=== PATIENT | female | born 1985 | race African-American/Black ===

== ENCOUNTER 2016-11-17 19:58 | Emergency (ER) | payer OTHER ==
[~2016-11-17 19:58] MED LIST: Iopamidol 370 76% 100 ML VIAL ONE
[2016-11-17] MEDS ORDERED: Ondansetron HCl/PF 4 MG/2 ML Vial ONE (20:28)
[2016-11-17 20:47] LABS: #Basophils 0.1 thou/uL (0.0-0.2); #Eosinphils 0.2 thou/uL (0.0-0.7); #Lymphocytes 4.2 thou/uL (1.20-3.40); #Monocytes 0.5 thou/uL (0.11-0.59); #Neutrophils 6.4 thou/uL (1.40-6.50); %Basophils 0.7 % (0.0-1.0); %Eosinophils 1.6 % (0.0-10.0); %Monocytes 4.4 % (0.0-10.0); %Neutrophils 56.3 % (42.0-75.0); Anisocytosis MODERATE=16-30 cells (100X) (0-5/hpf); Hemoglobin 11.9 g/dL (12.0-16.0); MDiff Complete? YES; Mean Corpuscular HGB CONC 31.5 g/dL (32.0-36.0); Mean Corpuscular Volume 72.9 fl (81.0-99.0); Mean Platelet Volume 8.7 fL (7.4-10.4); Ovalocytes MODERATE= 6-15 cells (100X) (0-1/hpf); PLT Morphology Comment Appears Adequate; Platelet Count 205 thou/uL (130-400); RBC Distribution Width 12.6 % (11.5-14.5); Red Blood Cell (RBC) Count 5.19 mill/uL (4.20-5.40); Target Cells SLIGHT = 2-5 cells (100X) (0-1/hpf); White Blood Cell (WBC) Count 11.4 thou/uL (4.8-10.8)
[2016-11-17 20:57] LABS: Anion Gap 14 mmol/L (10-20); BUN (Urea Nitrogen) 12 mg/dL (7.0-18.7); Calc. Creatinine Clearance 0 mL/min (70-130); Calcium 9.3 mg/dL (7.8-10.44); Carbon Dioxide 21 mmol/L (22-29); Chloride 109 mmol/L (98-107); Estimated GFR-MDRD 82; Glucose 87 mg/dL (70-105); Sodium 140 mmol/L (136-145)
[2016-11-17 21:06] LABS: Bilirubin Negative (Negative); Blood, Urine Trace (Negative); Clarity Clear (Clear); Glucose, Urine (Dipstick) Negative (Negative); Leukocyte Negative (Negative); Nitrite Negative (Negative); Protein, Urine (Dipstick) Negative (Neg-Trace); Specific Gravity, Urine 1.025 (1.002-1.036); Urobilinogen 0.2 mg/dL (0.2-1.0); pH, Urine 5.5 (5.0-9.0)
[2016-11-17 21:07] LABS: Bacteria/HPF None Seen HPF (None Seen); Squamous Epithelial 0-3 HPF (0-3); WBC/HPF None Seen HPF (0-3)
[2016-11-17 21:09] LABS: Pregnancy Test - Urine (BHCG) Negative (NEGATIVE); Pregu Control Background? CLEAR/WHITE (CLR/WHITE); Pregu Control Bar Appear? YES (CONTROL BAR); Specific Gravity 1.025 (1.002-1.036)
[2016-11-17 21:09] LABS: Wet Prep Clue Cells Clue Cells Absent (None Seen); Wet Prep Pathologist Review Spermatozoa Absent (None Seen); Wet Prep Spermatozoa 2nd Revie Agree with result (None Seen); Wet Prep Trichomonas Trichomonas Absent (None Seen)
[2016-11-17] MEDS ORDERED: Ketorolac Tromethamine 30 MG/ML VIAL ONE (21:23)
--- NOTE | 2016-11-17 22:28 | CT ---
CT OF THE ABDOMEN AND PELVIS WITH IV CONTRAST: Date: 11-17-16 Provided Clinical History: Left sided abdominal pain, painful urination. FINDINGS: Comparison 10-06-14. Visualized lung bases are free of significant opacity. The solid abdominal organs demonstrate no evidence for an acute abnormality. Evaluation of the bowel and peritoneal contents is limited as oral contrast is not administered. There is no evidence for b owel obstruction. No definite focal inflammatory fat stranding, free fluid, or free air apparent. Th e appendix is not distinctly identified. The osseous structures demonstrate no concerning lytic or blastic lesions. IMPRESSION: No evidence for an acute process with limitations as above. POS: [facility]
[2016-11-17] MEDS ORDERED: cefTRIAXone\\ROCEPHIN 250 MG VIAL ONE (22:30)
[2016-11-17] MEDS ORDERED: Lidocaine 1% 20 ML MDV ONE (22:30)
[2016-11-19 23:00] LABS: Chlamydia by PCR Not Detected (NotDetected); GC by PCR Not Detected (NotDetected)
== END 2016-11-17 23:20 | disposition home or self-care (01) ==
LOC: NAV ERS 19:58
DX: R10.2 Pelvic and perineal pain (principal); F17.210 Nicotine dependence, cigarettes, uncomplicated; F41.9 Anxiety disorder, unspecified; E28.2 Polycystic ovarian syndrome; Z79.899 Other long term (current) drug therapy
CPT/HCPCS: 36415; 74177; 80048; 81003; 81015; 81025; 85025; 87210; 87480; 87491; 87510; 87591; 87660; 93005; 96372; 96374; 96375; J0696; J1885; J2001; J2270; J2405

== ENCOUNTER 2016-11-26 23:55 | Emergency (ER) | payer OTHER ==
[2016-11-27] MEDS ORDERED: Lorazepam 2 MG/ML VIAL ONE (00:13)
== END 2016-11-27 00:35 | disposition home or self-care (01) ==
LOC: NAV ERS 23:55
DX: F41.9 Anxiety disorder, unspecified (principal); E28.2 Polycystic ovarian syndrome; F17.210 Nicotine dependence, cigarettes, uncomplicated; Z79.899 Other long term (current) drug therapy
CPT/HCPCS: 96372; J2060

== ENCOUNTER 2016-12-05 04:36 | Emergency (ER) | payer OTHER ==
[2016-12-05] MEDS ORDERED: Ondansetron ODT 4 MG TAB ONE (04:56)
[2016-12-05 05:02] LABS: Bilirubin Negative (Negative); Blood, Urine Trace (Negative); Clarity Clear (Clear); Glucose, Urine (Dipstick) Negative (Negative); Leukocyte Negative (Negative); Nitrite Negative (Negative); Protein, Urine (Dipstick) Negative (Neg-Trace); Specific Gravity, Urine 1.025 (1.005-1.030); pH, Urine 5.5 (5.0-9.0)
[2016-12-05 05:03] LABS: Bacteria/HPF Rare-Few HPF (None Seen); RBC/HPF 0-3 HPF (0-3); Squamous Epithelial 0-3 HPF (0-3); WBC/HPF 0-3 HPF (0-3)
[2016-12-05 05:04] LABS: Pregnancy Test - Urine (BHCG) Negative (NEGATIVE); Pregu Control Background? CLEAR/WHITE (CLR/WHITE); Pregu Control Bar Appear? YES (CONTROL BAR); Specific Gravity 1.025 (1.002-1.036)
[2016-12-05] MEDS ORDERED: Pantoprazole 40 MG VIAL ONE (05:16)
== END 2016-12-05 05:22 | disposition home or self-care (01) ==
LOC: NAV ERS 04:36
DX: R11.2 Nausea with vomiting, unspecified (principal); R10.13 Epigastric pain; F41.9 Anxiety disorder, unspecified; F17.210 Nicotine dependence, cigarettes, uncomplicated
CPT/HCPCS: 81003; 81015; 81025; 99284; C9113; Q0162

== ENCOUNTER 2017-02-21 09:36 | Emergency (ER) | payer OTHER | END 2017-02-21 10:17 | disposition home or self-care (01) | LOC: NAV ERS 09:36 | DX: F41.9 Anxiety disorder, unspecified (principal); G24.5 Blepharospasm; E28.2 Polycystic ovarian syndrome; D57.1 Sickle-cell disease without crisis; F17.210 Nicotine dependence, cigarettes, uncomplicated; Z79.899 Other long term (current) drug therapy | CPT/HCPCS: 93005 ==

== ENCOUNTER 2017-03-10 10:59 | Emergency (ER) | payer OTHER ==
[2017-03-10 11:26] LABS: Bilirubin Negative (Negative); Blood, Urine Trace (Negative); Clarity Clear (Clear); Glucose, Urine (Dipstick) Negative (Negative); Leukocyte Trace (Negative); Nitrite Negative (Negative); Protein, Urine (Dipstick) Negative (Neg-Trace); Urobilinogen 0.2 mg/dL (0.2-1.0)
[2017-03-10 11:36] LABS: Bacteria/HPF Rare-Few HPF (None Seen); WBC/HPF 0-3 HPF (0-3)
[2017-03-10] MEDS ORDERED: Morphine 2 MG/ML SYRINGE ONE (12:17)
[2017-03-10] MEDS ORDERED: Ondansetron HCl/PF 4 MG/2 ML Vial ONE (12:17)
[2017-03-10 12:24] LABS: #Basophils 0.1 thou/uL (0.0-0.2); #Eosinphils 0.2 thou/uL (0.0-0.7); #Lymphocytes 3.4 thou/uL (1.20-3.40); #Monocytes 0.4 thou/uL (0.11-0.59); #Neutrophils 5.9 thou/uL (1.40-6.50); %Basophils 0.9 % (0.0-1.0); %Eosinophils 1.9 % (0.0-10.0); %Lymphocytes 34.1 % (21.0-51.0); %Monocytes 4.1 % (0.0-10.0); Hemoglobin 12.5 g/dL (12.0-16.0); Mean Corpuscular HGB CONC 29.4 g/dL (32.0-36.0); Mean Corpuscular Hemoglobin 22.8 pg (27.0-31.0); Mean Corpuscular Volume 77.6 fl (81.0-99.0); Mean Platelet Volume 9.3 fL (7.4-10.4); Platelet Count 226 thou/uL (130-400); RBC Distribution Width 12.2 % (11.5-14.5); Red Blood Cell (RBC) Count 5.51 mill/uL (4.20-5.40); White Blood Cell (WBC) Count 9.9 thou/uL (4.8-10.8)
[2017-03-10 12:29] LABS: Hypochromia SLIGHT = 6-15 cells (100X) (0-5/hpf); MDiff Complete? YES; PLT Morphology Comment Appears Adequate; Tear Drops SLIGHT = 2-5 cells (100X) (0-1/hpf)
[2017-03-10 12:34] LABS: ALT (SGPT) Less than 6 U/L (8-55); AST (SGOT) 13 U/L (5-34); Alkaline Phosphatase 65 U/L (40-150); Anion Gap 13 mmol/L (10-20); BUN (Urea Nitrogen) 8 mg/dL (7.0-18.7); Bilirubin, Total 0.3 mg/dL (0.2-1.2); Calc. Creatinine Clearance 0 mL/min (70-130); Calcium 9.1 mg/dL (7.8-10.44); Carbon Dioxide 22 mmol/L (22-29); Chloride 109 mmol/L (98-107); Estimated GFR-MDRD Greater than 90; Globulin 2.9 g/dL (2.4-3.5); Glucose 85 mg/dL (70-105); Potassium 4.5 mmol/L (3.5-5.1); Protein, Total 6.9 g/dL (6.0-8.3); Sodium 139 mmol/L (136-145)
[2017-03-10 13:07] LABS: Pregu Control Background? CLEAR/WHITE (CLR/WHITE); Pregu Control Bar Appear? YES (CONTROL BAR)
[2017-03-10 13:08] LABS: Pregnancy Test - Urine (BHCG) Negative (Negative)
--- NOTE | 2017-03-10 13:45 | CT ---
CT ABDOMEN AND PELVIS WITHOUT IV CONTRAST 03/10/2017 HISTORY: Suprapubic abdominal pain. Cramping after urinating. Symptoms began this morning. COMPARISON: 11/17/2016. FINDINGS: The lung bases, liver, spleen, pancreas, bilateral adrenal glands, kidneys, urinary bladder, and angel kalie demonstrate a grossly normal nonenhanced CT appearance. No renal or ureteral calculi are seen bilaterally, and there is no hydronephrosis. The majority of the appendix is visualized and filled with gas and normal in caliber. The more dist al appendix is obscured due to adjacent unopacified loops of small bowel. There is a small amount of free fluid in the pelvis which does appear to be more than typically expe cted for normal physiological fluid. The exact etiology is uncertain. IMPRESSION: 1. Small amount of free fluid in the pelvis. 2. No renal or ureteral calculi are seen bilaterally, and there is no hydronephrosis. 3. While the distal portion of the appendix is incompletely imaged due to unopacified loops of bowel , the majority of the appendix is visualized and filled with gas and is normal in caliber. POS: [facility]
== END 2017-03-10 14:17 | disposition home or self-care (01) ==
LOC: NAV ERS 10:59
DX: R10.31 Right lower quadrant pain (principal); R31.9 Hematuria, unspecified; F41.9 Anxiety disorder, unspecified; F17.210 Nicotine dependence, cigarettes, uncomplicated
CPT/HCPCS: 36415; 74176; 80053; 81003; 81015; 81025; 85025; 96361; 96374; 96375; J2270; J2405

== ENCOUNTER 2017-03-15 06:37 | Emergency (ER) | payer OTHER ==
[2017-03-15] MEDS ORDERED: cefTRIAXone\\ROCEPHIN 1 GM VIAL ONE (06:58)
[2017-03-15] MEDS ORDERED: Lidocaine 1% 20 ML MDV ONE (06:58)
== END 2017-03-15 07:28 | disposition home or self-care (01) ==
LOC: NAV ERS 06:37
DX: J20.9 Acute bronchitis, unspecified (principal); F41.9 Anxiety disorder, unspecified; F17.210 Nicotine dependence, cigarettes, uncomplicated
CPT/HCPCS: 96372; J0696; J2001

== ENCOUNTER 2017-03-23 18:56 | Emergency (ER) | payer OTHER ==
[2017-03-23] MEDS ORDERED: Ondansetron ODT 4 MG TAB ONE (19:21)
[2017-03-23 19:42] LABS: Bilirubin Negative (Negative); Blood, Urine Small (Negative); Glucose, Urine (Dipstick) Negative (Negative); Leukocyte Negative (Negative); Nitrite Negative (Negative); Protein, Urine (Dipstick) 100 mg/dL (Neg-Trace); Urobilinogen 0.2 mg/dL (0.2-1.0); pH, Urine 5.5 (5.0-9.0)
[2017-03-23 19:46] LABS: Clarity SL HAZY (Clear); Specific Gravity, Urine 1.029 (1.002-1.036)
[2017-03-23 19:47] LABS: Pregnancy Test - Urine (BHCG) Negative (Negative); Pregu Control Background? CLEAR/WHITE (CLR/WHITE); Pregu Control Bar Appear? YES (CONTROL BAR); Specific Gravity 1.029 (1.002-1.036)
[2017-03-23 19:48] LABS: RBC/HPF 0-3 HPF (0-3); Squamous Epithelial 0-3 HPF (0-3); WBC/HPF 0-3 HPF (0-3)
== END 2017-03-23 20:05 | disposition home or self-care (01) ==
LOC: NAV ERS 18:56
DX: R11.2 Nausea with vomiting, unspecified (principal); F17.210 Nicotine dependence, cigarettes, uncomplicated; F41.9 Anxiety disorder, unspecified
CPT/HCPCS: 81003; 81015; 81025; 99284; Q0162

== ENCOUNTER 2020-08-16 15:22 | Emergency (ER) | payer OTHER ==
[2020-08-16] MEDS ORDERED: Morphine 4 MG/ML VIAL ONE ×2 (16:08→17:29)
[2020-08-16] MEDS ORDERED: Ondansetron PF 4 MG/2 ML Vial ONE (16:08)
[2020-08-16] MEDS ORDERED: Sodium Chloride 0.9% 1,000 ML ONE (16:11)
[2020-08-16 16:22] LABS: #Basophils 0.1 thou/uL (0.0-0.2); #Eosinphils 0.1 thou/uL (0.0-0.7); #Lymphocytes 3.6 thou/uL (1.20-3.40); #Monocytes 0.4 thou/uL (0.11-0.59); #Neutrophils 7.5 thou/uL (1.40-6.50); %Basophils 0.7 % (0.0-1.0); %Eosinophils 0.7 % (0.0-10.0); %Lymphocytes 30.8 % (21.0-51.0); %Monocytes 3.1 % (0.0-10.0); %Neutrophils 64.7 % (42.0-75.0); Mean Corpuscular HGB CONC 29.3 g/dL (32.0-36.0); Mean Corpuscular Hemoglobin 22.7 pg (27.0-31.0); Mean Corpuscular Volume 77.5 fL (78.0-98.0); Mean Platelet Volume 9.3 fL (7.4-10.4); Platelet Count 256 thou/uL (130-400); RBC Distribution Width 12.6 % (11.5-14.5); White Blood Cell (WBC) Count 11.6 thou/uL (4.8-10.8)
[2020-08-16 16:33] LABS: ALT (SGPT) 10 U/L (8-55); AST (SGOT) 14 U/L (5-34); Albumin 4.2 g/dL (3.5-5.0); Alkaline Phosphatase 58 U/L (40-110); Anion Gap 14 mmol/L (10-20); BUN (Urea Nitrogen) 9 mg/dL (7.0-18.7); Bilirubin, Total 0.5 mg/dL (0.2-1.2); Calc. Creatinine Clearance 0 mL/min (70-130); Calcium 9.2 mg/dL (7.8-10.44); Carbon Dioxide 22 mmol/L (22-29); Chloride 106 mmol/L (98-107); Globulin 3.1 g/dL (2.4-3.5); Glucose 88 mg/dL (70-105); Potassium 3.7 mmol/L (3.5-5.1); Protein, Total 7.3 g/dL (6.0-8.3); Sodium 138 mmol/L (136-145)
[2020-08-16 16:51] LABS: Platelet Morphology Comment Appears Adequate; RBC Morphology Normal
== END 2020-08-16 19:26 | disposition home or self-care (01) ==
LOC: NAV ERS 15:22
DX: D57.00 Hb-SS disease with crisis, unspecified (principal); F17.210 Nicotine dependence, cigarettes, uncomplicated
CPT/HCPCS: 80053; 85025; 96374; 96375; 96376; J2270; J2405; J7050

== ENCOUNTER 2020-11-01 23:18 | Emergency (ER) | payer OTHER ==
[2020-11-02] MEDS ORDERED: Clindamycin 150 MG CAP ONE (00:23)
[2020-11-02] MEDS ORDERED: traMADol HCl 50 MG TAB ONE (00:23)
== END 2020-11-02 00:30 | disposition home or self-care (01) ==
LOC: NAV ERS 23:18
DX: N64.4 Mastodynia (principal); F17.210 Nicotine dependence, cigarettes, uncomplicated; Z79.899 Other long term (current) drug therapy
CPT/HCPCS: 99283

== ENCOUNTER 2021-01-01 21:48 | Emergency (ER) | payer OTHER | END 2021-01-01 23:30 | disposition left against medical advice (07) | LOC: NAV ERS 21:48 | DX: Z53.21 Procedure and treatment not carried out due to patient leaving prior to being seen by health care provider (principal) ==